=== PATIENT | female | born 1995 | race Caucasian/White ===

== ENCOUNTER 2019-06-19 09:17 | Emergency (ER) | payer OTHER ==
[2019-06-19 09:34] VITALS: BP 104/73
--- NOTE | 2019-06-19 10:09 | UC ---
Lower Extremity/Ankle HPI - HPI Summary HPI Summary: 23 yo female presents with LEFT ankle injury. She tells me that last night she was walking down her steps and twisted her left ankle. Didn't have any pain at the time and was ambulatory, but today has pain and is worse with weight bearing. Denies numbness or tingling. Has been keeping it elevated, which helps - History of Current Complaint Chief Complaint: UCLowerExtremity Stated Complaint: ANKLE INJURY Time Seen by Provider: 06/19/19 10:09 Hx Obtained From: Patient Hx Last Menstrual Period: 03/26/19 Onset/Duration: Sudden Onset Severity Initially: Moderate Severity Currently: Moderate Pain Intensity: 7 Pain Scale Used: 0-10 Numeric Aggravating Factor(s): Standing, Ambulation Alleviating Factor(s): Rest, Elevation Able to Bear Weight: Yes - Allergies/Home Medications Allergies/Adverse Reactions: Allergies Allergy/AdvReac Type Severity Reaction Status Date / Time No Known Allergies Allergy Verified 06/19/19 09:34 Home Medications: Home Medications FLUoxetine CAP* [Prozac CAP*] 10 mg PO DAILY 06/19/19 [History Confirmed ] PMH/Surg Hx/FS Hx/Imm Hx Psychological History: Anxiety, Depression - Surgical History Surgical History: None - Social History Alcohol Use: Rare Substance Use Type: None Smoking Status (MU): Never Smoked Tobacco Review of Systems All Other Systems Reviewed And Are Negative: No Constitutional: Positive: Negative Skin: Positive: Negative Respiratory: Positive: Negative Cardiovascular: Positive: Negative Neurovascular: Positive: Negative Musculoskeletal: Positive: Other: - Left ankle pain Neurological: Positive: Negative Psychological: Positive: Negative Physical Exam - Summary Physical Exam Summary: GENERAL: NAD. WDWN. No pain distress. SKIN: No rashes, sores, lesions, or open wounds. CHEST: No accessory muscle use. Breathing comfortably and in no distress. CV: Pulses intact PT and DP. Cap refill <2seconds MSK: LEFT ANKLE: FROM. Mild TTP overlying anterior medial deltoid ligaments. Strength 5/5. No edema or obvious bony deformities. Negative talar tilt. No increased laxity. Negative [place] test. NEURO: Alert. Sensations intact and symmetric B/L LEs PSYCH: Age appropriate behavior. Triage Information Reviewed: Yes Vital Signs: Initial Vital Signs Temp 98.3 F 12/10/19 09:29 Pulse 90 06/19/19 09:29 Resp 16 06/19/19 09:29 BP 104/73 06/19/19 09:29 Pulse Ox 98 06/19/19 09:29 Vital Signs Reviewed: Yes Diagnostics - Radiology Ankle XR Radiology Interpretation Completed By: Radiologist Summary of Radiographic Findings: REPORT AND IMPRESSION: #. Negative for fracture, osteochondral lesion, or articular malalignment. #. No suggestion of talocrural joint effusion. #. Very mild soft tissue swelling over the lateral malleolus. Lower Extremity Course/Dx - Course Course Of Treatment: XR as above. Suspect ankle sprain. She was given crutches, MARIXA wrap, and gel splint to use for comfort and continue RICE therapy. Be rechecked if symptoms do not improve within 5-7 days - Differential Dx/Diagnosis Provider Diagnosis: Ankle sprain Discharge ED - Sign-Out/Discharge Documenting (check all that apply): Patient Departure All imaging exams completed and their final reports reviewed: Yes - Discharge Plan Condition: Stable Disposition: HOME Patient Education Materials: Ankle Sprain (ED) Referrals: No Primary Care Phys,NOPCP [Primary Care Provider] - Additional Instructions: If you develop a fever, shortness of breath, chest pain, new or worsening symptoms - please call your PCP or go to the ED immediately. The X-ray of your ankle was normal today. I recommend that you use the crutches for comfort as needed. Continue to rest, ice, and elevate your ankle to decrease pain and swelling. Weight bear as tolerated - Billing Disposition and Condition Condition: STABLE Disposition: Home
== END 2019-06-19 10:48 | disposition home or self-care (01) ==
LOC: UCEAST 09:17
DX: S93.492A Sprain of other ligament of left ankle, initial encounter (principal); X50.1XXA Overexertion from prolonged static or awkward postures, initial encounter; Y93.89 Activity, other specified; Y92.9 Unspecified place or not applicable
CPT/HCPCS: 99203; G0463